=== PATIENT | female | born 1965 | race Caucasian/White ===

== ENCOUNTER → 2016-09-24 | Outpatient (REF) | payer BC ==
[~2016-09-24] MED LIST: /ROPI1TA PO; /WARF5TA PO; AMIT25TA10 PO; AMIT25TA2 OR; DICLOFENAC PO; IBUPROPHEN PO; PENNSAID DROPS TOP; PRILOSEC OTC PO; SKEL800T5 PO; SLEEP MED PO; TYLE325T5 PO; VICO5TAB PO; motrin PO
== END ==
LOC: M SFHCLERA 14:15
PROVIDERS: ATTEND Nurse Practitioner Family
DX: J02.9 Acute pharyngitis, unspecified (principal)

== ENCOUNTER 2018-06-29 15:29 | Emergency (ER) | payer BC ==
[~2018-06-29] VITALS: Ht 162.6 cm; Wt 77.3 kg
[2018-06-29] MEDS ORDERED: ARIP1TAB6 PO (15:46)
[2018-06-29] MEDS ORDERED: ZOLO100T PO (15:46)
[2018-06-29] MEDS ORDERED: EXCETAB80 PO (15:46)
[2018-06-29 16:20] LABS: VENOUS BASE EXCESS 1.4 (-2.0-2.0); VENOUS HCO3 24.3 MEQ/L (23.0-27.0); VENOUS O2 SATURATION 99.3 % (60.0-80.0); VENOUS PARTIAL PRESSURE CO2 33.2 mmHg (38.0-50.0); VENOUS PARTIAL PRESSURE O2 178.8 mmHg (30.0-50.0); VENOUS PH 7.482 UNITS (7.330-7.430); VENOUS STANDARD HCO3 25.7 MEQ/L; VENOUS TOTAL CO2 25.3 MEQ/L (24.0-28.0)
[2018-06-29 16:21] LABS: BASO # 0.1 10^3/uL (0.0-0.2); BASO % 0.7 % (0.0-1.0); EOS # 0.2 10^3/uL (0.0-0.50); EOS % 2.9 % (0.0-3.0); HEMATOCRIT 40.3 % (36.0-47.0); HEMOGLOBIN 13.5 g/dl (12.0-15.5); LYMPH # 2.1 10^3/uL (1.5-4.5); LYMPH % 29.2 % (24.0-44.0); MEAN CORPUSCULAR HEMOGLOBIN 29.7 pg (27.0-33.0); MEAN CORPUSCULAR HGB CONC 33.5 g/dl (32.0-36.5); MEAN CORPUSCULAR VOLUME 88.6 fl (80.0-96.0); MONO # 0.7 10^3/uL (0.0-0.8); MONO % 9.7 % (0.0-5.0); NEUTROPHILS # 4.1 10^3/uL (1.8-7.7); NEUTROPHILS % 57.2 % (36.0-66.0); PLATELET COUNT, AUTOMATED 292 10^3/uL (150-450); RED BLOOD COUNT 4.55 10^6/uL (4.00-5.40); WHITE BLOOD COUNT 7.2 10^3/uL (4.0-10.0)
--- NOTE | 2018-06-29 16:41 | REP ---
Portable chest x-ray: Single view. History: Chest pain. Comparison study: October 06, 2012. Findings: EKG monitoring electrodes overlie the chest. The heart is not felt to be enlarged. There are clips in the right upper quadrant of the abdomen post cholecystectomy. In the left upper quadrant, there is a rounded rim calcification 4.4 cm in greatest diameter consistent with a splenic cyst or splenic artery aneurysm. This is unchanged from the 2013 prior study. The lungs are well inflated and clear. Pleural angles are sharp. Pulmonary vasculature is not increased. No bony abnormality is seen. Impression: No active cardiopulmonary disease. Postcholecystectomy clips on the right. Large rim calcification left upper quadrant 4.5 cm in diameter compatible with a calcified splenic cyst. This was seen on CT study from 2010 and is unchanged. Electronically Signed by Genaro Laird MD 06/29/2018 05:28 P
[2018-06-29 17:01] LABS: ALBUMIN 3.8 GM/DL (3.2-5.2); ALT/SGPT 70 U/L (12-78); BILIRUBIN,DIRECT < 0.1 MG/DL (0.0-0.2); BILIRUBIN,TOTAL 0.4 MG/DL (0.2-1.0); BLOOD UREA NITROGEN 12 MG/DL (7-18); CALCIUM LEVEL 9.2 MG/DL (8.5-10.1); CARBON DIOXIDE LEVEL 26 MEQ/L (21-32); CHLORIDE LEVEL 106 MEQ/L (98-107); CPK CREATINE PHOSPHOKINASE 170 U/L (26-192); CREATININE FOR GFR 0.61 MG/DL (0.55-1.30); GLOMERULAR FILTRATION RATE > 60.0 (>51); GLUCOSE, FASTING 94 MG/DL (70-100); LIPASE 334 U/L (73-393); MB/CK RELATIVE INDEX 1.29 (< OR =4); NT-PRO BNP 9 PG/ML (<125); POTASSIUM SERUM 4.2 MEQ/L (3.5-5.1); SODIUM LEVEL 141 MEQ/L (136-145); TOTAL PROTEIN 6.9 GM/DL (6.4-8.2); TROPONIN I < 0.02 NG/ML (< 0.10)
[2018-06-29 21:52] LABS: CPK CREATINE PHOSPHOKINASE 133 U/L (26-192); MB/CK RELATIVE INDEX 1.43 (< OR =4); TROPONIN I < 0.02 NG/ML (< 0.10)
[2018-06-29 22:15] VITALS: BP 128/70
--- NOTE | 2018-06-30 10:42 | ECGEPIP ---
Stationary ECG Study [facility] - ED Test Date: 2018-06-29 Pat Name: ANURAG RHOADES Department: Room: - Gender: F [employer] Operator: : 1965 Requested By: KAREL MARTIN Order Number: [id number] Reading MD: Dionne Mir Measurements Intervals [place] Rate: 68 P: 50 AR: 186 QRS: 9 QRSD: 102 T: 30 QT: 402 QTc: 428 Interpretive Statements SINUS RHYTHM PRWP DECREASED RATE 10/19/12 Electronically Signed On 06-30-2018 10:42:23 EST by Dionne Mir
--- NOTE | 2018-06-30 10:45 | ECGEPIP ---
Stationary ECG Study [facility] - ED Test Date: 2018-06-29 Pat Name: ANURAG RHOADES Department: Room: - Gender: F Executive Assistant To President: EUNICE : 1965 Requested By: KAREL MARTIN Order Number: [id number] Reading MD: Dionne Mir Measurements Intervals [place] Rate: 84 P: 36 MO: 197 QRS: -10 QRSD: 104 T: -1 QT: 355 QTc: 422 Interpretive Statements SINUS RHYTHM INFERIOR INFARCT INCREASED RATE 06/29/18 Electronically Signed On 06-30-2018 10:45:11 EST by Dionne Mir
== END 2018-06-29 22:17 | disposition home or self-care (01) ==
LOC: EDSEX 15:29 → EDBD 15:29 → M ED 15:29
DX: R07.89 Other chest pain (principal); R11.2 Nausea with vomiting, unspecified; I10 Essential (primary) hypertension; F43.10 Post-traumatic stress disorder, unspecified; Z79.899 Other long term (current) drug therapy; Z87.891 Personal history of nicotine dependence

== ENCOUNTER → 2021-07-04 | Outpatient (CLI) | payer OTHER ==
[~2021-07-04] MED LIST changes: -/ROPI1TA PO; -/WARF5TA PO; +ARIP1TAB6 PO; +COUM1TAB17 PO; +EXCETAB80 PO; +REQU1TAB16 PO; +ZOLO100T PO
[2021-07-04 12:36] LABS: PLATELET COUNT, AUTOMATED 182 10^3/uL (150-450)
[2021-07-04 12:47] LABS: INR 0.95; PROTHROMBIN TIME 13.1 SECONDS (12.7-14.5)
[2021-07-04 12:48] LABS: PARTIAL THROMBOPLASTIN TIME 28.1 SECONDS (25.9-37.0)
[2021-07-04 12:53] LABS: COLLAGEN EPINEPHRINE 76 SECONDS (74-162)
== END ==
LOC: M LAB 11:59
PROVIDERS: ATTEND Physical Medicine & Rehabilitation
DX: M51.16 Intervertebral disc disorders with radiculopathy, lumbar region (principal)

== ENCOUNTER 2021-11-16 14:26 | Emergency (ER) | payer OTHER ==
[2021-11-16] MEDS ORDERED: methocarbamoL 500 MG TAB PO ONE (18:35)
[2021-11-16] MEDS ORDERED: KETOROLAC 30 MG/ML 1ML VIAL IM ONE (18:35)
[2021-11-16] MEDS ORDERED: LIDOCAINE 5% (LIDODERM) PATCH TD ONE (18:35)
[2021-11-16] MEDS ORDERED: METH-1164 PO (20:18)
[2021-11-16 20:26] VITALS: BP 136/82
[2021-11-17] MEDS ORDERED: **NOTE PATIENT COMMENT** MISC XX ONE (06:30)
== END 2021-11-16 20:27 | disposition home or self-care (01) ==
LOC: EDBD 14:26 → M ED 14:26
DX: M54.16 Radiculopathy, lumbar region (principal); M54.40 Lumbago with sciatica, unspecified side; I10 Essential (primary) hypertension; K57.92 Diverticulitis of intestine, part unspecified, without perforation or abscess without bleeding; E78.5 Hyperlipidemia, unspecified; Z96.659 Presence of unspecified artificial knee joint; Z79.1 Long term (current) use of non-steroidal anti-inflammatories (NSAID); Z79.899 Other long term (current) drug therapy
CPT/HCPCS: 96372; 99284; J1885

== ENCOUNTER → 2022-06-15 | Outpatient (CLI) | payer BC ==
[~2022-06-15] MED LIST changes: +E-Z-HD 98% w/w 340GM SUSP BTL As Ordered ONE; +E-Z-PAQUE 96% w/w SUSP 176GM BTL As Ordered ONE; +METH-1164 PO
== END ==
LOC: M RAD 08:29
PROVIDERS: ATTEND Surgery
DX: K21.9 Gastro-esophageal reflux disease without esophagitis (principal); Z98.84 Bariatric surgery status

== ENCOUNTER → 2022-12-14 | Outpatient (CLI) | payer OTHER ==
[~2022-12-14] MED LIST changes: -E-Z-HD 98% w/w 340GM SUSP BTL As Ordered ONE; -E-Z-PAQUE 96% w/w SUSP 176GM BTL As Ordered ONE
== END ==
LOC: M RAD 08:33
PROVIDERS: ATTEND Physician Assistant
DX: M25.562 Pain in left knee (principal); Z96.652 Presence of left artificial knee joint
CPT/HCPCS: 78315; A9503

== ENCOUNTER 2023-09-15 12:02 | Emergency (ER) | payer OTHER ==
[~2023-09-15] VITALS: Ht 162.6 cm; Wt 77.3 kg
[2023-09-15] MEDS: KETOROLAC 30 MG/ML 1ML VIAL IV ONE (13:35)
[2023-09-15 13:39] LABS: BASO % 0.3 % (0.0-1.0); EOS # 0.1 10^3/uL (0.0-0.5); EOS % 0.8 % (0.0-3.0); HEMATOCRIT 41.8 % (36.0-47.0); HEMOGLOBIN 13.9 g/dl (12.0-15.5); LYMPH # 1.3 10^3/uL (1.5-5.0); LYMPH % 10.2 % (24.0-44.0); MEAN CORPUSCULAR HGB CONC 33.3 g/dl (32.0-36.5); MEAN CORPUSCULAR VOLUME 93.1 fl (80.0-96.0); MONO # 0.7 10^3/uL (0.0-0.8); NEUTROPHILS # 10.2 10^3/uL (1.5-8.5); NEUTROPHILS % 82.1 % (36.0-66.0); PLATELET COUNT, AUTOMATED 251 10^3/uL (150-450); RED BLOOD COUNT 4.49 10^6/uL (4.00-5.40); WHITE BLOOD COUNT 12.4 10^3/uL (4.0-10.0)
[2023-09-15 14:02] LABS: CK-MB VALUE MASS 1.1 NG/ML (<3.6)
[2023-09-15 14:04] LABS: BLOOD UREA NITROGEN 14 MG/DL (9-23); CARBON DIOXIDE LEVEL 31 MMOL/L (20-31); CHLORIDE LEVEL 104 MMOL/L (98-107); GLOMERULAR FILTRATION RATE > 60.0 (>51); GLUCOSE, FASTING 91 MG/DL (60-100); MAGNESIUM LEVEL 1.8 MG/DL (1.8-2.4); POTASSIUM SERUM 3.9 MMOL/L (3.5-5.1); SODIUM LEVEL 142 MMOL/L (136-145)
[2023-09-15 14:06] LABS: FREE T4 0.96 NG/DL (0.89-1.76); THYROID STIMULATING HORMONE 1.678 uIU/ML (0.55-4.78)
[2023-09-15 14:07] LABS: CPK CREATINE PHOSPHOKINASE 82 U/L (34-145); MB/CK RELATIVE INDEX 1.34 (< OR =4)
[2023-09-15 15:05] LABS: CK-MB VALUE MASS < 1.0 NG/ML (<3.6)
[2023-09-15 15:18] LABS: CPK CREATINE PHOSPHOKINASE 71 U/L (34-145)
[2023-09-15 16:39] VITALS: BP 160/92; TEMP 97.7; O2SAT 99
== END 2023-09-15 16:42 | disposition home or self-care (01) ==
LOC: M ED 12:02 → EDBD 12:02 → M ED 16:42
DX: R51.9 Headache, unspecified (principal); I10 Essential (primary) hypertension; F32.9 Major depressive disorder, single episode, unspecified; Z79.899 Other long term (current) drug therapy
CPT/HCPCS: 70450; 71045; 80048; 82550; 82553; 83036; 83735; 84439; 84443; 84484; 85025; 93005; 93041; 94760; 96374; 99285; J1885

== ENCOUNTER → 2023-11-05 | Outpatient (CLI) | payer OTHER ==
[2023-11-05 09:53] LABS: CREATININE FOR GFR 0.76 MG/DL (0.55-1.30); GLOMERULAR FILTRATION RATE > 60.0 (>51)
== END ==
LOC: M LAB 08:25
PROVIDERS: ATTEND Orthopaedic Surgery Orthopaedic Surgery of the Spine
DX: M51.26 Other intervertebral disc displacement, lumbar region (principal)

== ENCOUNTER → 2023-11-05 | Outpatient (CLI) | payer OTHER ==
[2023-11-05 09:29] LABS: BASO % 0.8 % (0.0-1.0); EOS # 0.1 10^3/uL (0.0-0.5); EOS % 3.1 % (0.0-3.0); HEMATOCRIT 42.4 % (36.0-47.0); HEMOGLOBIN 13.8 g/dl (12.0-15.5); LYMPH # 1.3 10^3/uL (1.5-5.0); LYMPH % 34.1 % (24.0-44.0); MEAN CORPUSCULAR HEMOGLOBIN 30.5 pg (27.0-33.0); MEAN CORPUSCULAR HGB CONC 32.5 g/dl (32.0-36.5); MEAN CORPUSCULAR VOLUME 93.6 fl (80.0-96.0); MONO # 0.4 10^3/uL (0.0-0.8); MONO % 9.2 % (2.0-8.0); NEUTROPHILS # 2.1 10^3/uL (1.5-8.5); NEUTROPHILS % 52.8 % (36.0-66.0); PLATELET COUNT, AUTOMATED 234 10^3/uL (150-450); RED BLOOD COUNT 4.53 10^6/uL (4.00-5.40); WHITE BLOOD COUNT 3.9 10^3/uL (4.0-10.0)
[2023-11-05 09:36] LABS: ERYTHROCYTE SEDIMENTATION RATE 7 mm/hr (0-30)
[2023-11-05 09:55] LABS: ALBUMIN 3.5 G/DL (3.2-5.2); ALKALINE PHOSPHATASE 38 U/L (46-116); ALT/SGPT 16 U/L (7.0-40); AST/SGOT 9 U/L (<34); BILIRUBIN,TOTAL 0.8 MG/DL (0.3-1.2); BLOOD UREA NITROGEN 10 MG/DL (9-23); CALCIUM LEVEL 9.7 MG/DL (8.5-10.1); CARBON DIOXIDE LEVEL 33 MMOL/L (20-31); CHLORIDE LEVEL 105 MMOL/L (98-107); CHOLESTEROL LEVEL 203 MG/DL (<200); CREATININE FOR GFR 0.73 MG/DL (0.55-1.30); GLOMERULAR FILTRATION RATE > 60.0 (>51); GLUCOSE, FASTING 81 MG/DL (60-100); HDL CHOLESTEROL 65.4 MG/DL (>40); LDL CHOLESTEROL 121.4 MG/DL (<100); NON-HDL-C 137.6 MG/DL; POTASSIUM SERUM 4.3 MMOL/L (3.5-5.1); SODIUM LEVEL 140 MMOL/L (136-145); TOTAL PROTEIN 6.3 G/DL (5.7-8.2); TRIGLYCERIDES LEVEL 81 MG/DL (<150)
[2023-11-05 09:56] LABS: THYROID STIMULATING HORMONE 2.088 uIU/ML (0.55-4.78)
[2023-11-05 09:57] LABS: FREE T4 0.96 NG/DL (0.89-1.76)
== END ==
LOC: M LAB 08:22
PROVIDERS: ATTEND Internal Medicine
DX: R61 Generalized hyperhidrosis (principal)